=== PATIENT | male | born 2005 | race Caucasian/White ===

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

== ENCOUNTER 2024-07-05 16:14 | Emergency (ER) | payer OTHER, SELFPAY ==
[2024-07-05 16:15] VITALS: BP 144/81; PULSE 79; RESP 18; TEMP 36.2; O2SAT 100; BMI 18.5
--- NOTE | 2024-07-05 17:18 | EDS_ITS ---
HPI HPI - GI History of Present Illness Chief Complaint: Abd Pain Informant: patient Abdominal Pain/Flank Pain Onset: Days Context: Gradual Onset Timing: Intermittent Quality: Aching Location: - (Suprapubic area) Worsened by: - (Working, lifting) Relieved by: - (Tylenol) Nausea/Vomiting/Emesis GI Symptom: Negative for Nausea or Vomiting Diarrhea/Melena/Hematochezia GI Symptom: Negative for Diarrhea, Melena or Hematochezia Associated Symptoms Associated Symptoms: Positive for Dysuria; Negative for Frequency, Hematuria or Urgency Narrative Narrative: Patient presents with lower abdominal pain that has been getting worse over the past few days. Patient states that his intermittent. Patient states it is mainly over his lower abdomen and suprapubic area. Patient describes his pain as aching. Patient states he does a lot of lifting at work. Patient states it is worse when he is working. Patient states he is taking Tylenol which has helped. Patient denies any nausea or vomiting. Patient denies any diarrhea, melena, or hematochezia. Patient admits to some dysuria but denies any renan quency or hematuria. [facility] Medical History Hay fever Home Medications ?Medication ?Instructions ?Recorded ?Last Taken ?Type NK 07/05/24 Unknown History Allergy/AdvReac Type Severity Reaction Status Date / Time No Known Allergies Allergy Verified 07/05/24 16:15 Surgical History Hx of tonsillectomy History of appendectomy Social History Smoking Status: Never smoker ROS ROS ED Constitutional Constitutional ED: Denies chills or fever(s) Eyes Eyes: Denies blurry vision or change in vision ENT ENT ED: Denies rhinorrhea or sore throat Cardiovascular Cardiovascular: Denies chest pain or palpitations Respiratory/Chest Respiratory/Chest: Denies cough or dyspnea Gastrointestinal Gastrointestinal: Reports abdominal pain; Denies nausea or vomiting Genitourinary Genitourinary ED: Reports dysuria; Denies hematuria Musculoskeletal Musculoskeletal: Reports back pain; Denies neck pain Integumentary Denies abscess or rash Neurologic Neurologic: Reports headache(s); Denies weakness Allergic/Immunologic Allergic/Immunologic ED: Denies mouth swelling or urticaria EXAM Physical Exam Const Vital Signs: 07/05/24 16:15 07/05/24 16:15 07/05/24 18:15 Temperature 97.2 F L 97.2 F L Temperature Source Temporal Temporal Pulse Rate 79 79 60 Respiratory Rate 18 18 14 Blood Pressure 144/81 H 144/81 H 118/97 H Blood Pressure Mean 102 102 104 Pulse Ox 100 100 100 Oxygen Delivery Method Room Air Room Air Room Air 07/05/24 20:00 Temperature Temperature Source Pulse Rate 131 H Respiratory Rate 16 Blood Pressure 126/66 H Blood Pressure Mean 86 Pulse Ox 99 Oxygen Delivery Method Room Air Positive well nourished and well developed General Appearance ED: well developed and NAD HEENT Reports moist mucous membranes Neck supple and no JVD Resp normal respiratory effort and clear to auscultation bilaterally Cardio regular rate and regular rhythm GI non-distended Palpation: soft and tender LLQ, RLQ and suprapubic; Negative for guarding or rebound tenderness present Neuro CN's II-XII intact bilaterally, moves all extremities and no sensory deficits noted Sensorium / Orientation: alert Motor Exam: strength 5/5 throughout Psych mental status grossly normal MDM MDM MDM Narrative Medical decision making narrative: Differential diagnosis includes urinary tract infection, urethritis, bowel obstruction, perforation, colitis, diverticulitis, and viral illness. CBC will be obtained to assess for leukocytosis and anemia. Basic metabolic profile will be obtained to assess for electrolyte abnormality and renal function. Urinalysis will be obtained to assess for urinary tract infection and hematuria. GC and Chlamydia PCR will be obtained to assess for urethritis. Acute abdominal x-rays will be obtained to assess for bowel obstruction and perforation. Lab Data Attestation: I reviewed the patient's lab results. Lab results narrative: CBC was reviewed and was within normal limits. Basic metabolic profile was reviewed and was within normal limits. Urinalysis was reviewed. There is no evidence of urinary tract infection or hematuria. GC and Chlamydia PCR were reviewed and were negative. Labs: Laboratory Results - last 24 hr 07/05/24 07/05/24 17:35 19:00 WBC 6.8 RBC 4.77 Hgb 13.9 Hct 41.5 MCV 87.0 MCH 29.1 MCHC 33.5 RDW Std Deviation 39.5 RDW Coeff of Jessica 12.3 Plt Count 236 MPV 9.8 Immature Gran % (Auto) 0.400 Neut % (Auto) 60.7 Lymph % (Auto) 28.9 Grant % (Auto) 8.4 Eos % (Auto) 1.2 Baso % (Auto) 0.4 Absolute Neuts (auto) 4.1 Absolute Lymphs (auto) 1.96 Nucleated RBC % 0 Sodium 138 Potassium 4.1 Chloride 107 Carbon Dioxide 25.0 Anion Gap 6 BUN 16 Creatinine 0.95 Estim Creat Clear Calc 99.82 Est GFR (MDRD) Af Amer 129 Est GFR (MDRD) Non-Af 106 BUN/Creatinine Ratio 16.8 Glucose 93 Calcium 9.4 Urine Color Yellow Urine Clarity Clear Urine pH 7.0 Ur Specific [place] 1.005 Urine Protein Negative Urine Glucose (UA) Normal Urine Ketones Negative Urine Occult Blood Negative Urine Nitrite Negative Urine Bilirubin Negative Urine Urobilinogen Normal Ur Leukocyte Esterase Negative Urine RBC 0 SEEN Urine WBC 0 SEEN Ur Squamous Epith Cells 0-5 SEEN Urine Bacteria 0 SEEN Urine Mucus 0 SEEN Radiography Diagnostic Testing: Clinical Impression(s) from Imaging Studies Acute Abdomen Series 07/05/24 18:53 IMPRESSION: Mild nonspecific ileus with diffuse fecal retention in the colon Electronically Signed: Stiven De Los Santos MD at 19:36 EDT , Acute abdominal x-rays were obtained. There are 4 views. On my independent interpretation, there is diffuse stool noted throughout the colon. There is no evidence of perforation or obstruction. Radiologist also interpreted the x-rays and agrees. Treatment and Re-Evaluation :: Patient was advised of his findings. Patient was instructed to eat a high-fiber diet. Patient was instructed to use [id number] laxatives or MiraLAX as needed for constipation. Patient was instructed to follow-up with his primary care physician in 5 to 7 days. Patient understood and was agreeable with plan. All questions were answered. Discharge Plan Triage Chief Complaint: Abd Pain ED Provider: Fausto Abebe Dx/Rx/DC Orders Clinical Impression: Constipation, Abdominal pain Instructions: ED Constipation (Adult) Prescriptions: No Action NK Stand Alone Forms: ED Work / School Excuse Primary Care Provider: Care Physician,No Primary Referrals: Radha Carey MD [Non-Staff] - 5-7 Days Print Language: Ug[place] Disposition Disposition: Home, Self Care
[2024-07-05 17:37] LABS: Bacteria 0 SEEN /hpf (None Seen); Mucous, Urine 0 SEEN /hpf (<or=2+); Red Blood Cells-Urine 0 SEEN /hpf (0-5); White Blood Cells 0 SEEN /hpf (0-5)
[2024-07-05 17:42] LABS: Color, Urine Yellow (Yellow); Glucose, Dipstick Normal (Normal); Ketone-Dipstick Negative (Negative); Leukocyte Esterase-Dipstick Negative /ul (Negative); Nitrite-Dipstick Negative (Negative); Occult Blood-Urine Negative /ul (Negative); Protein-Dipstick Negative (Negative); Specific Gravity, Urine 1.005 (1.002-1.030); Urine Bilirubin Dipstick Negative (Negative); Urine Clarity Clear (Clear); Urine Urobilinogen Normal (Normal)
[2024-07-05 17:57] LABS: Squamous Epithelial Cells - UA 0-5 SEEN /hpf (0-5)
[2024-07-05 18:15] VITALS: BP 118/97; PULSE 60; RESP 14; O2SAT 100
--- NOTE | 2024-07-05 18:53 | RAD_ITS ---
STUDY: X-RAY - ACUTE ABDOMINAL SERIES REASON FOR EXAM: Male, 18 years old. Abdominal pain TECHNIQUE: Single view of the chest. Supine, and upright view(s) of the abdomen were obtained. COMPARISON: None. FINDINGS: The lungs are clear and expanded. Normal size heart. Normal mediastinum and pauline. Normal visualized pulmonary arteries. Normal visualized aortic arch and descending thoracic aorta. Mild nonspecific ileus with diffuse fecal retention in the colon. The soft tissue structures of the abdomen and pelvis are unremarkable. Normal visualized osseous structures. RAD/Acute Abdomen Inc Chest IMPRESSION: Mild nonspecific ileus with diffuse fecal retention in the colon Electronically Signed: Stiven De Los Santos MD at 19:36 EDT ,
[2024-07-05 19:13] LABS: Absolute Lymphocyte Count 1.96 X10^3/uL (0.83-4.51); Absolute Neutrophil Count 4.1 X10^3/uL (2.0-7.7); Basophil# 0.03 X10^3/uL; Basophil% 0.4 % (0-1); Eosinophil# 0.08 X10^3/uL; Eosinophils% 1.2 % (0-5); Hematocrit 41.5 % (40-54); Hemoglobin 13.9 g/dL (13.0-16.5); Lymphocyte # 1.96 X10^3/ul (0.83-4.51); Lymphocyte % 28.9 % (19-41); Mean Corp Hgb Conc 33.5 g/dL (32-36); Mean Corpuscular Hgb 29.1 pg (27.0-32.0); Mean Platelet Vol. 9.8 fl (6.2-12.0); Monocyte# 0.57 X10^3/uL; Monocyte% 8.4 % (0-10); NRBC Flagged by Analyzer 0 % (0-5); Neutrophil # 4.12 X10^3/uL (2.7-7.7); Neutrophil % 60.7 % (47-70); Platelet Count 236 K/mm3 (150-450); RBC Distribution Width CV 12.3 % (11.6-14.6); RBC Distribution Width SD 39.5 fl (35.1-43.9); Red Blood Count 4.77 M/mm3 (4.6-6.2); White Blood Count 6.8 K/mm3 (4.4-11.0)
[2024-07-05 19:31] LABS: Anion Gap 6 (5-15); BUN 16 mg/dL (7-18); BUN/Creat Ratio 16.8 RATIO (10-20); Calcium,Total 9.4 mg/dL (8.5-10.1); Chloride 107 mmol/L (98-107); Creatinine, Serum 0.95 mg/dL (0.70-1.30); EST Glomerular Filtration Rate 106 mL/min (>60); Est Glom Filt Rate - Afr Amer 129 mL/min (>60); Estimated Creatinine Clearance 99.82 ml/min; Glucose 93 mg/dL (74-106); Potassium 4.1 mmol/L (3.5-5.1); Sodium Level 138 mmol/L (136-145)
[2024-07-05 20:00] VITALS: BP 126/66; PULSE 131; RESP 16; O2SAT 99
[2024-07-05 20:18] VITALS: BP 138/70; PULSE 115; RESP 16; TEMP 36.8; O2SAT 99
== END 2024-07-05 20:28 | disposition home or self-care (01) ==
PROVIDERS: Emergency Provider Emergency Medicine; Visit Provider Emergency Medicine
DX: K59.00 Constipation, unspecified (principal); R10.30 Lower abdominal pain, unspecified
CPT/HCPCS: 74022; 80048; 81001; 85025; 87491; 87591; 99283; A4216

== ENCOUNTER 2025-02-16 17:02 | Emergency (ER) | payer OTHER, SELFPAY ==
[2025-02-16 17:03] VITALS: BP 120/81; PULSE 106; RESP 18; TEMP 36.5; O2SAT 100
--- NOTE | 2025-02-16 17:22 | US_ITS ---
PROCEDURE: TESTICULAR WITH ARTERIAL FLOW 02/16/2025 REASON FOR EXAM: TESTICULAR PAIN TECHNIQUE: Boss scale imaging of the scrotal contents. COMPARISON: None. FINDINGS: RIGHT testicle: 4.9 x 2.8 x 2.1 cm. It appears homogeneous. There is normal arterial and venous flow. No evidence of testicular torsion is seen. Right epididymis: Within normal limits. Small hydrocele is seen. No varicocele. 0.2 cm epididymal cyst is present. LEFT testicle: 5.1 x 3 x 1.7cm. It appears homogeneous. There is normal arterial and venous flow. No evidence of testicular torsion is seen. Left epididymis: Within normal limits. Small hydrocele is seen. No varicocele. Other findings: No hydrocele or large varicocele. US/Testicular with Arterial Flow IMPRESSION: No evidence of testicular torsion. Small bilateral hydroceles. No varicocele. Reading Location: [id number]
[2025-02-16 17:50] LABS: Bacteria 0 SEEN /hpf (None Seen); Mucous, Urine 0 SEEN /hpf (<or=2+); White Blood Cells 0 SEEN /hpf (0-5)
[2025-02-16 18:01] LABS: Color, Urine Yellow (Yellow); Glucose, Dipstick Normal (Normal); Ketone-Dipstick Negative (Negative); Leukocyte Esterase-Dipstick Negative /ul (Negative); Nitrite-Dipstick Negative (Negative); Occult Blood-Urine Negative /ul (Negative); Protein-Dipstick 15 mg/dl (Negative); Specific Gravity, Urine 1.005 (1.002-1.030); Urine Bilirubin Dipstick Negative (Negative); Urine Clarity Sl. Cloudy (Clear); Urine Urobilinogen Normal (Normal)
[2025-02-16 19:06] VITALS: BP 112/68; PULSE 94; RESP 16; O2SAT 98
[2025-02-16 19:06] LABS: Red Blood Cells-Urine 0-5 SEEN /hpf (0-5); Squamous Epithelial Cells - UA 0-5 SEEN /hpf (0-5)
--- NOTE | 2025-02-16 20:46 | EX.ED.GUMALE ---
HPI History of Present Illness Chief Complaint: Male Pain/Injury [facility] Medical History Hay fever Home Medications ?Medication ?Instructions ?Recorded ?Last Taken ?Type mecobalamin (vitamin B12) PO 02/16/25 Unknown History Allergy/AdvReac Type Severity Reaction Status Date / Time No Known Allergies Allergy Verified 02/16/25 18:27 Surgical History Hx of tonsillectomy History of appendectomy Social History Smoking Status: Never smoker EXAM Physical Exam Const Vital Signs: 02/16/25 17:03 02/16/25 19:06 02/16/25 21:00 Temperature 97.7 F L Temperature Source Temporal Pulse Rate 106 H 94 89 Respiratory Rate 18 16 18 Blood Pressure 120/81 H 112/68 122/57 H Blood Pressure Mean 94 82 78 Pulse Ox 100 98 97 Oxygen Delivery Method Room Air Room Air Room Air MDM MDM MDM Narrative Medical decision making narrative: HISTORY OF PRESENT ILLNESS: 19-year-old male presents with scrotal redness has been on and off for last 3 weeks. Notes also pain in bilateral testicles. He notes occasional burning with urination. He is not sexually active. He is not concerned about STDs.. He denies lower abdominal pain. Denies fever or vomiting. Denies any lesions or rashes to the private area REVIEW OF SYSTEMS: Pertinent positives: Scrotal redness, pain Pertinent negatives: Fever, vomiting PHYSICAL EXAM: Nursing triage notes reviewed, Vital signs reviewed Constitutional: please see mdm HENT: MMM Eyes: Pupils equal round and reactive to light, Extraocular muscles intact Neck: No stridor, no JVD, full neck ROM Lungs: Clear to auscultation, No wheezing or rales. No increased work of breathing, no conversational dyspnea, no accessory muscle use, no nasal flaring. No respiratory distress noted Heart: Regular rate and rhythm, No murmurs, No rubs and No gallops, 2+ distal pulses (radial, femoral, posterior tibial) in all extremities Abdomen: Soft, there is no tenderness, rigidity, rebound or guarding, no obvious peritoneal signs, no palpable pulsatile abdominal masses, no auscultated abdominal bruit : No CVAT, no perineal TTP, no crepitus or bullae, no evidence of point's gangrene, normal testicular lie, intact hemostatic reflex. Noted confluent erythema over both scrotal hemispheres. No crepitus or bullae noted no palpable abscess noted Extremities: No edema Neuro: No new focal neurological deficits, cranial nerves II through XII intact, 5/5 strength in all present extremities. Intact sensation to light touch in all present extremities, 2+ reflexes bilateral patella tendons. Skin: Please see for skin exam MEDICAL DECISION MAKING: Chief Complaint: Scrotal redness MDM Narrative: The patient was initially hemodynamically stable, afebrile and nontoxic-appearing. Exam consistent with scrotal cellulitis. I considered the following differential diagnosis: Testicular torsion, orchitis, epididymitis, UTI, Maximilian's gangrene Exam not consistent with Maximilian's gangrene exam was consistent with scrotal cellulitis ALL IMAGES (IF OBTAINED) HAVE BEEN PERSONALLY REVIEWED AND INTERPRETED BY MYSELF. Urinalysis shows no evidence of urinary inflammation suggestive of UTI GC chlamydia negative Urinalysis no evidence of infection Scrotal ultrasound shows no evidence of torsion, orchitis, epididymitis The synthesis of the patient's history, physical exam, labs imaging studies suggest likely scrotal cellulitis. Will start the patient on doxycycline. Will give close urology follow-up. Strict return precautions were discussed The patient and/or family, caregivers express understanding. The patient and/or family, caregivers agrees with the plan. Shared decision making: I will have a discussion with the patient and or visitors regarding risk/benefits of further testing or admission. They will be made aware of of the risk/benefits inherent in this decision they will be given the opportunity to voice understanding. Total critical care time today provided was at least 0 minutes. This excludes separately billable procedures. Critical care time (if documented) is secondary to the patient having high probability of clinically significant/life threatening deterioration in the patient's condition which required my urgent intervention. Impression: 1. Scrotal cellulitis Dispo: Discharge home This note was generated with [employer] dictation software. It may contain incorrect words, spelling, and punctuation that were not noted in review of the chart prior to signing. Lab Data Labs: Laboratory Results - last 24 hr 02/16/25 17:46 Urine Color Yellow Urine Clarity Sl. Cloudy Urine pH 7.0 Ur Specific [place] 1.005 Urine Protein 15 H Urine Glucose (UA) Normal Urine Ketones Negative Urine Occult Blood Negative Urine Nitrite Negative Urine Bilirubin Negative Urine Urobilinogen Normal Ur Leukocyte Esterase Negative Urine RBC 0-5 SEEN Urine WBC 0 SEEN Ur Squamous Epith Cells 0-5 SEEN Urine Bacteria 0 SEEN Urine Mucus 0 SEEN Radiography Diagnostic Testing: Clinical Impression(s) from Imaging Studies Testicular Ultrasound 02/16/25 17:22 IMPRESSION: No evidence of testicular torsion. Small bilateral hydroceles. No varicocele. Reading Location: [facility] Discharge Plan Triage Chief Complaint: Male Pain/Injury ED Provider: Jarett Camp Dx/Rx/DC Orders Prescriptions: No Action mecobalamin (vitamin B12) PO Primary Care Provider: Care Physician,No Primary Referrals: Care Physician,No Primary [Primary Care Provider] - Print Language: Vietnamese
[2025-02-16 21:00] VITALS: BP 122/57; PULSE 89; RESP 18; O2SAT 97
[2025-02-16 21:29] VITALS: BP 122/57; PULSE 89; RESP 18; TEMP 36.8; O2SAT 97
[2025-02-16] MEDS: Doxycycline 100 MG CAPSULE PO (21:41)
== END 2025-02-16 21:44 | disposition home or self-care (01) ==
PROVIDERS: Emergency Provider Emergency Medicine; Visit Provider Emergency Medicine
DX: N50.812 Left testicular pain (principal); N50.811 Right testicular pain; Z90.49 Acquired absence of other specified parts of digestive tract
CPT/HCPCS: 76870; 81001; 87491; 87591; 93976; 99282